=== PATIENT | male | born 1950 | race African-American/Black ===

== ENCOUNTER 2018-01-11 07:28 | Day surgery (SDC) | payer MEDICARE ==
[2018-01-10 16:06] LABS: Potassium 4.3 mmol/L (3.5-5.1)
[2018-01-10 16:15] LABS: Absolute Lymphocytes (CBC) 3.2 K/uL (0.7-4.9); Absolute Monocytes 0.7 K/uL (0.1-1.3); Absolute Neutrophil 8.3 K/uL (1.8-8.0); Basophils % 0.5 % (0-1.3); Eosinophils % 0.8 % (0-4.4); Hematocrit 34.1 % (39.6-49.0); Lymphocytes % 25.6 % (15.3-44.8); MCH 30.3 pg (27.0-35.0); MCV 92.1 fL (80-100); MPV 9.3 fL (7.6-11.3); RBC Red Blood Cell Count 3.71 M/uL (4.33-5.43)
[2018-01-10 16:17] LABS: Protime INR 0.95
[2018-01-11] MEDS ORDERED: CEFOXITIN/SWI 1gm 1 GM/10 ML SYR ONE (08:03)
[2018-01-11] MEDS ORDERED: NA CHLORIDE 0.9% 1,000 ML ONE (08:03)
[2018-01-11] MEDS ORDERED: BUPIVACAINE 0.25% PF 10 ML VIAL ONE (08:17)
[2018-01-11] MEDS ORDERED: MIDAZOLAM HCL 2 MG/2 ML INJ ONE ×2 (08:20→08:46)
[2018-01-11] MEDS ORDERED: PROPOFOL 200 MG/20 ML VIAL IV ONE ×2 (08:20→08:46)
--- OUTSIDE RECORDS SUMMARY | 2018-01-11 08:20 | XMS REPORT ---
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 Assessment Special screening for malignant Z12.5 Active neoplasm of prostate Assessment Hyperlipidemia, unspecified E78.5 Active hyperlipidemia type Problem Adult general medical exam Z00.00 Active Problem Non-pressure chronic ulcer of skin L98.499 Active of other sites with unspecified severity Problem Essential (primary) hypertension I10 Active Problem Hyperlipidemia, unspecified E78.5 Active hyperlipidemia type Problem Type 2 diabetes mellitus without E11.9 Active complication, 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 Problem Special screening for malignant Z12.5 Active neoplasm of prostate Problem Gastroesophageal reflux disease, K21.9 Active esophagitis presence not specified Medications Medication Code Code Instructions Start End Status Dosage System Date Date Augmentin [facility] 93131114035 875-125 MG Active 1 tablet Orally every 12 hrs Metoprolol [facility] 05788154329 100 MG Orally Active 1 tablet Tartrate Twice a day with food [employer] [facility] [address]598 Active not defined Norvasc [facility] 23744204791 10 MG Orally Active 1 tablet Once a day Humulin N [facility] 40901426362 100 UNIT/ML Active 25 units Subcutaneous bid BID Diovan [facility] 26579659703 320 MG Orally Active 1 tablet Once a day Simvastatin [facility] 83775660629 80 MG Orally Active 1 tablet Once a day in the evening [place] 3 [facility] 29524056291 1000 MG Orally Active 1 capsule Once a day Irbesartan [facility] 04674914757 300 MG Orally November 02, Active 1 tablet Once a day 2017 Humalog [facility] 23695966527 100 UNIT/ML Active 5 units Subcutaneous with each meal Iron [facility] [address]-55 Active not defined Metformin HCl [facility] 61496127853 500 MG Orally Active 1 tablet Daily with meals Results Name Result Date Reference Range Unit Abnormality Flag Urine Microalbumin, Random ----UR MICROALBUMIN 107.0 20171103 < 1.9 mg/dL H Hemoglobin A1C ----Hemoglobin A1c 7.8 [id number] 4.2-6.3 % H TSH Thyroid Stimulating Hormone ----Thyroid Stimulating 1.020 [id number] 0.36-3.74 [iU]/L Hormone Summary Purpose eClinicalWorks Submission
--- OUTSIDE RECORDS SUMMARY | 2018-01-11 08:20 | XMS REPORT ---
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 Problem Essential (primary) hypertension I10 Active Problem BPH loc w urin obs/LUTS N40.1 Active Problem Special screening for malignant Z12.5 Active neoplasm of prostate Problem Gastroesophageal reflux disease, K21.9 Active esophagitis presence not specified Problem Adult general medical exam Z00.00 Active Problem Non-pressure chronic ulcer of skin L98.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
--- OUTSIDE RECORDS SUMMARY | 2018-01-11 08:20 | XMS REPORT ---
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 Problem Essential (primary) hypertension I10 Active Problem BPH loc w urin obs/LUTS N40.1 Active Problem Special screening for malignant Z12.5 Active neoplasm of prostate Problem Gastroesophageal reflux disease, K21.9 Active esophagitis presence not specified Problem Adult general medical exam Z00.00 Active Problem Non-pressure chronic ulcer of skin L98.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 Active of other sites with unspecified severity Assessment BPH loc w urin obs/LUTS N40.1 Active Assessment Incomplete bladder emptying R33.9 Active Assessment Phimosis N47.1 Active Assessment Elevated PSA measurement R97.20 Active Medications Medication Code Code Instructions Start End Status Dosage System Date Date Metoprolol [facility] 65916295978 100 MG Orally Active 1 tablet Tartrate Twice a day with food [place] 3 [facility] 85033537680 1000 MG Orally Active 1 capsule Once a day Irbesartan [facility] 10767154563 300 MG Orally November 02, Active 1 tablet Once a day 2017 Simvastatin [facility] 64650221053 80 MG Orally Active 1 tablet Once a day in the evening Humulin N [facility] 08921442717 100 UNIT/ML Active 25 units Subcutaneous bid BID Augmentin [facility] 58099894666 875-125 MG Active 1 tablet Orally every 12 hrs Prostate Health [facility] 65[address]78 Active not defined Rosuvastatin ND 88080587685 40 MG Orally Nov 08, Active 1 tablet Calcium Once a day 2017 Multi Vitamin [facility] 40792287166 - Orally Once a Active 1 tablet day Humalog [facility] 04813189688 100 UNIT/ML Active 5 units Subcutaneous with each meal Iron [facility] [address]-79 Active not defined Metformin HCl [facility] 81317477004 500 MG Orally Active 1 tablet Daily with meals Norvasc [facility] 78469741991 10 MG Orally Active 1 tablet Once a day Results No Known Results Summary Purpose eClinicalWorks Submission
--- OUTSIDE RECORDS SUMMARY | 2018-01-11 08:20 | XMS REPORT ---
:1950 Author Organization [employer] Care Team Providers Name Role Phone Bernadette Parson Provider Role Unavailable Allergies No Known Allergies Problems Problem Type Condition Code Onset Dates Condition Status Problem Hyperlipidemia, unspecified E78.5 Active hyperlipidemia type [...] sites with unspecified severity Medications Medication Code System Code Instructions Start Date End Date Status Dosage Cipro [facility] 31991831993 500 MG Orally BID Nov 15, Nov 18, Active 1 tablet 2017 2017 Results No Known Results Summary Purpose eClinicalWorks Submission
--- OUTSIDE RECORDS SUMMARY | 2018-01-11 08:20 | XMS REPORT ---
:1950 Author Organization [employer] Care Team Providers Name Role Phone Bernadette Parson Provider Role Unavailable Allergies No Known Allergies Problems Problem Type Condition Code Onset Dates Condition Status Problem Hyperlipidemia, unspecified E78.5 Active hyperlipidemia type Problem Type 2 diabetes mellitus without E11.9 Active complication, unspecified group home 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 Problem Essential (primary) hypertension [...] Start Date End Date Status Dosage Cipro [facility] 73479105577 500 MG Orally BID Dec 14, Dec 19, Active 1 tablet 2017 2017 Results No Known Results Summary Purpose eClinicalWorks Submission
--- OUTSIDE RECORDS SUMMARY | 2018-01-11 08:20 | XMS REPORT ---
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 01703642193 40 MG Orally Nov 08, Active 1 tablet Calcium Once a day [address] [facility] 18412161227 100 UNIT/ML Active 25 units Subcutaneous bid BID [place] [address] [facility] 45685373138 1000 MG Orally Active 1 capsule Once a day Metoprolol [facility] 65262470101 100 MG Orally Active 1 tablet Tartrate Twice a day with food Irbesartan [facility] 48535190248 300 MG Orally November 02, Active 1 tablet Once a day [address] [facility] 36240263681 10 MG Orally Active 1 tablet Once a day Humalog [facility] 52535813004 100 UNIT/ML Active 5 units Subcutaneous with each meal Simvastatin ND 45794074837 80 MG Orally Active 1 tablet Once a day in the evening Prostate Health [facility] [address]012 Active not defined Iron [facility] [address]-30 Active not defined Metformin HCl ND 39475062787 500 MG Orally Active 1 tablet Daily with meals Multi Vitamin ND 89143121076 - Orally Once a Active 1 tablet day Augmentin [facility] 39681193874 875-125 MG Active 1 tablet Orally every 12 hrs Results No Known Results Summary Purpose eClinicalWorks Submission
--- OUTSIDE RECORDS SUMMARY | 2018-01-11 08:20 | XMS REPORT ---
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
--- OUTSIDE RECORDS SUMMARY | 2018-01-11 08:20 | XMS REPORT ---
:1950 Author Organization [employer]Works Care Team Providers Name Role Phone Bernadette Parson Provider Role Unavailable Allergies No Known Allergies Problems Problem Type Condition Code Onset Dates Condition Status Problem Hyperlipidemia, unspecified E78.5 Active hyperlipidemia type Problem Type 2 diabetes mellitus without E11.9 Active complication, unspecified custodial 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 Problem Essential (primary) hypertension [...]
--- OUTSIDE RECORDS SUMMARY | 2018-01-11 08:20 | XMS REPORT ---
:1950 Author Organization eClinicalWorks Care Team Providers Name Role Phone Bernadette Parson Provider Role Unavailable Allergies No Known Allergies Problems Problem Type Condition Code Onset Dates Condition Status Problem Hyperlipidemia, unspecified E78.5 Active hyperlipidemia type Problem Type 2 diabetes mellitus without E11.9 Active complication, unspecified senior living 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 Problem Essential (primary) hypertension [...]
--- OUTSIDE RECORDS SUMMARY | 2018-01-11 08:20 | XMS REPORT ---
:1950 [facility] Team Providers Name Role Phone Bernadette Parson Provider Role Unavailable Allergies, Adverse Reactions, Alerts Substance Reaction Event Type Sulfa rash Drug Allergy Problems Problem Type Condition Code Onset Dates Condition Status Assessment Elevated PSA measurement R97.20 Active Problem Hyperlipidemia, unspecified E78.5 Active hyperlipidemia type Assessment BPH loc w urin obs/LUTS N40.1 Active Assessment Incomplete bladder emptying R33.9 Active Assessment Phimosis N47.1 Active Problem Type 2 diabetes mellitus without E11.9 Active complication, unspecified care home 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 Problem Essential (primary) [...] Start End Status Dosage System Date Date Simvastatin [facility] 29052645567 80 MG Orally Active 1 tablet Once a day in the evening Augmentin [facility] 88839782491 875-125 MG Active 1 tablet Orally every 12 hrs Norvasc [facility] 69627293680 10 MG Orally Active 1 tablet Once a day Multi Vitamin [facility] 49586423035 - Orally Once a Active 1 tablet day Metoprolol [facility] 37951380373 100 MG Orally Active 1 tablet Tartrate Twice a day with food [place] 3 [facility] 57190012107 1000 MG Orally Active 1 capsule Once a day Rosuvastatin [facility] 67928956561 40 MG Orally Nov 08, Active 1 tablet Calcium Once a day 2018 Prostate Health [facility] 46627-[address]345 Active not defined Irbesartan [facility] 16775477670 300 MG Orally November 02, Active 1 tablet Once a day 2017 Humalog [facility] 02300385569 100 UNIT/ML Active 5 units Subcutaneous with each meal Iron [facility] [address]-69 Active not defined Humulin N [facility] 70210929935 100 UNIT/ML Active 25 units Subcutaneous bid BID Metformin HCl [facility] 59164658453 500 MG Orally Active 1 tablet Daily with meals Results Name Result Date Reference Range Unit Abnormality Flag URINALYSIS AUTO W/O SCOPE (56108) ----NIT neg 20171111 ----URO 0.2 20171111 ----PROTEIN 2+ 20171111 ----pH 5.5 20171111 ----BLO neg 20171111 ----GLUCOSE 2+ 20171111 ----WALTER neg 20171111 ----BILIRUBIN neg 20171111 ----KETONES neg 20171111 ----SPECIFIC GRAVITY 1.020 20171111 PVR ----PVR 153 20171111 Summary Purpose eClinicalWorks Submission
[2018-01-11] MEDS ORDERED: FENTANYL CITR 100 MCG/2 ML ONE ×2 (08:21→08:46)
[2018-01-11] MEDS ORDERED: LIDOCAINE 2% MPF 5 ML VIAL ONE ×2 (08:21→08:46)
--- OUTSIDE RECORDS SUMMARY | 2018-01-11 08:21 | XMS REPORT ---
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 Problem Essential (primary) hypertension [...] End Status Dosage System Date Date Metoprolol [facility] 72191532412 100 MG Orally Active 1 tablet Tartrate Twice a day with food Iron [facility] [address]-58 Active not defined Rosuvastatin [facility] 69565795252 40 MG Orally Nov 08, Active 1 tablet Calcium Once a day 2017 [place] 3 [facility] 73497047284 1000 MG Orally Active 1 capsule Once a day Metformin HCl [facility] 58344032364 500 MG Orally Active 1 tablet Daily with meals Prostate Health [facility] [address]-13132 Active not defined Simvastatin [facility] 08383676202 80 MG Orally Active 1 tablet Once a day in the evening Irbesartan [facility] 39777921807 300 MG Orally November 02, Active 1 tablet Once a day 2017 Multi Vitamin [facility] 42091852551 - Orally Once a Active 1 tablet day Norvasc [facility] 32468904160 10 MG Orally Active 1 tablet Once a day Augmentin [facility] 29959395741 875-125 MG Active 1 tablet Orally every 12 hrs Humulin N [facility] 13086304789 100 UNIT/ML Active 25 units Subcutaneous bid BID Humalog [facility] 49416248073 100 UNIT/ML Active 5 units Subcutaneous with each meal Results Name Result Date Reference Range Unit Abnormality Flag URINALYSIS AUTO W/O SCOPE (72093) ----NIT neg 20180105 ----URO 0.2 20180105 ----PROTEIN 2+ 20180105 ----pH 5.5 20180105 ----BLO tr 20180105 ----GLUCOSE 2+ 20180105 ----WALTER tr 20180105 ----BILIRUBIN neg 20180105 ----KETONES neg 20180105 ----SPECIFIC GRAVITY >=1.030 20180105 Summary Purpose eClinicalWorks Submission
--- OUTSIDE RECORDS SUMMARY | 2018-01-11 08:21 | XMS REPORT ---
:1950 Author Organization eClinicalWorks Care Team Providers Name Role Phone Bernadette Parson Provider Role Unavailable Allergies No Known Allergies Problems Problem Type Condition Code Onset Dates Condition Status Problem Hyperlipidemia, unspecified E78.5 Active hyperlipidemia type Problem Type 2 diabetes mellitus without E11.9 Active complication, unspecified fpc 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 Problem Essential (primary) hypertension [...]
--- OUTSIDE RECORDS SUMMARY | 2018-01-11 08:21 | XMS REPORT ---
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
--- OUTSIDE RECORDS SUMMARY | 2018-01-11 08:21 | XMS REPORT ---
:1950 Author Organization eClinicalWorks Care Team Providers Name Role Phone Bernadette Parson Provider Role Unavailable Allergies No Known Allergies Problems Problem Type Condition Code Onset Dates Condition Status Problem Hyperlipidemia, unspecified E78.5 Active hyperlipidemia type Problem Type 2 diabetes mellitus without E11.9 Active complication, unspecified [facility] 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 Problem Essential (primary) hypertension [...]
--- OUTSIDE RECORDS SUMMARY | 2018-01-11 08:21 | XMS REPORT ---
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 Problem Essential (primary) hypertension [...] Start End Status Dosage System Date Date Humulin N [facility] 49016338078 100 UNIT/ML Active 25 units Subcutaneous bid BID Iron [facility] [address]-05 Active not defined Multi Vitamin [facility] 24558444948 - Orally Once a Active 1 tablet day Augmentin [facility] 11569411315 875-125 MG Active 1 tablet Orally every 12 hrs Levaquin [facility] 44227720577 500 MG Orally Dec 21Dec Active 1 tablet Once 2017 Prostate Health [facility] 285[address]62 Active not defined [place] 3 [facility] 96022999299 1000 MG Orally Active 1 capsule Once a day Humalog [facility] 50428469718 100 UNIT/ML Active 5 units Subcutaneous with each meal Norvasc [facility] 07706739403 10 MG Orally Active 1 tablet Once a day Rosuvastatin ND 63785933232 40 MG Orally Nov 08, Active 1 tablet Calcium Once a day 2017 Simvastatin [facility] 09318578200 80 MG Orally Active 1 tablet Once a day in the evening Metoprolol [facility] 43399958503 100 MG Orally Active 1 tablet Tartrate Twice a day with food Metformin HCl [facility] 33674311486 500 MG Orally Active 1 tablet Daily with meals Irbesartan [facility] 26655663142 300 MG Orally November 02, Active 1 tablet Once a day 2017 Results Name Result Date Reference Range Unit Abnormality Flag URINALYSIS AUTO W/O SCOPE (01883) ----NIT neg 20171221 ----URO 0.2 20171221 ----PROTEIN 2+ 20171221 ----pH 5.0 20171221 ----BLO tr 20171221 ----GLUCOSE 1t 20171221 ----WALTER neg 20171221 ----BILIRUBIN neg 20171221 ----KETONES neg 20171221 ----SPECIFIC GRAVITY >=1.030 20171221 Summary Purpose eClinicalWorks Submission
[2018-01-11] MEDS ORDERED: BACITRACIN OINTMENT 15 GM TUBE TOP ONE (08:42)
[2018-01-11] MEDS ORDERED: ONDANSETRON HCL 40 MG/20 ML VIAL ONE (09:28)
[2018-01-11] MEDS ORDERED: PROMETHAZINE 25 MG/ML VIAL ONE (10:45)
[2018-01-11 10:58] VITALS: O2SAT 94
[2018-01-11 12:20] VITALS: BP 136/74; TEMP 97.1
== END 2018-01-11 12:21 | disposition home or self-care (01) ==
LOC: OR 07:28
PROVIDERS: ATTEND Internal Medicine Hematology & Oncology
PROC: 0VTTXZZ Resection of Prepuce, External Approach (ICD-10-PCS; principal; 2018-01-11 08:30)
DX: N47.1 Phimosis (principal); E11.9 Type 2 diabetes mellitus without complications; I10 Essential (primary) hypertension; K21.9 Gastro-esophageal reflux disease without esophagitis; E78.5 Hyperlipidemia, unspecified
CPT/HCPCS: 36415; 54161; 80051; 82565; 82962 ×2; 84520; 85025; 85610; 85730; 88304; J2250; J2405; J2550; J3010; J7030